=== PATIENT | female | born 2000 | race Caucasian/White ===

== ENCOUNTER → 2023-11-21 14:04 | Outpatient (REF) | payer BC, SELFPAY | LOC: HWRAD 14:04 | PROVIDERS: ATTENDING PHYSICIAN Family Medicine | DX: M54.2 Cervicalgia (principal); G89.29 Other chronic pain; M54.50 Low back pain, unspecified | CPT/HCPCS: 72050; 72072; 72110 ==

== ENCOUNTER → 2024-01-26 14:50 | Outpatient (REF) | payer BC, SELFPAY | LOC: WDC 14:50 | PROVIDERS: ATTENDING PHYSICIAN Student in an Organized Health Care Education/Training Program; FAMILY PHYSICIAN Family Medicine | DX: Z01.818 Encounter for other preprocedural examination (principal) | CPT/HCPCS: 76641 ==

== ENCOUNTER → 2024-02-08 17:19 | Outpatient (REF) | payer BC, SELFPAY | LOC: CLAB 17:19 | PROVIDERS: ATTENDING PHYSICIAN Student in an Organized Health Care Education/Training Program | DX: M25.511 Pain in right shoulder (principal); N62 Hypertrophy of breast; M25.529 Pain in unspecified elbow; M54.6 Pain in thoracic spine | CPT/HCPCS: 88305 ==

== ENCOUNTER 2024-04-08 20:35 | Emergency (ER) | payer BC, SELFPAY ==
[2024-04-08 20:36] VITALS: BP 158/100
[2024-04-08 21:02] VITALS: BMI 28.4
--- NOTE | 2024-04-08 21:10 | ED.GENMED ---
History of Present Illness
General
Chief Complaint: Abdominal Symptoms
Source: patient
Exam Limitations: none
Time Seen by Provider: 04/08/24 20:58
History of Present Illness
History of Present Illness:
This is a 23 year old female that comes in with c/o vomiting. States that she started with vomiting on Tuesday. States that she was here a year ago for the same thing. States that yesterday she didn't vomit only once in the morning. States that
she feels slightly SOB but feels this is her anxiety. States that she has also had diarrhea and chills. Denies any fever, chest pain, headache, dizziness, urinary burning.
Past History
Past History
ED Past Medical History: Asthma, Psychiatric (Anxiety, Depression, ) and Other (Colitis)
ED Past Surgical History: Tonsilectomy and Other (Bilateral breast reduction)
Social History
Tobacco: Non-smoker
Alcohol: Occasional
Personal: Single
Living: with family
Review of Systems
Review of Systems
All Other Systems: ROS reviewed and negative except as documented in HPI and ROS
Constitutional: Reports chills; Denies fever
EENT: Reports no symptoms
Respiratory: Reports trouble breathing (Slight); Denies cough
Cardiac: Reports no symptoms; Denies chest pain
ABD/GI: Reports abdominal pain, nausea, vomiting and diarrhea
: Reports no symptoms; Denies dysuria, frequency or urgency
Musculoskeletal: Reports no symptoms
Skin: Reports no symptoms
Neurological: Reports no symptoms; Denies dizzy or headache
Psychiatric: Reports no symptoms
Phy Exam
General Physical Exam
General Presentation: no apparent distress
General age: appears stated age
General Skin: warm and dry
General Habitus: normal
General Mental: alert
General Hydration: appears well hydrated
ENT Exam
ENT Exam: TM's normal, pharynx normal and neck supple
Eye Exam
Eye Exam: EOMI
Cardiovascular Exam
Cardiovascular Exam: regular rate/rhythm, no edema, no murmur and normal peripheral pulses
Pulmonary Exam
Pulmonary Exam: lungs clear, no respiratory distress, no rales, chest non tender, no crackles, no rhonchi, no wheezing and no cough
Gastrointestinal Exam
Gastrointestinal Exam: normal bowel sounds, non tender, soft, no organomegaly, no pulsatile mass and non distended
Musculoskeletal Exam
Musculoskeletal Exam: full ROM and no edema
Skin Exam
Skin Exam: normal color, warm/dry, no rash and no petechia
Psychiatric Exam
Psychiatric Exam: normal mood/affect
Course
Orders/Labs/Results
Orders:
Orders
04/08/24 21:09
0.9% Sodium Chloride 1000 ml [Nss] 1,000 ml IV BOLUS
Diphenhydramine [Benadryl] 25 mg IV NOW STA
Prochlorperazine [Compazine] 5 mg IV NOW STA
04/08/24 21:10
Pantoprazole [Protonix IV] 40 mg IV NOW STA
04/08/24 21:15
Basic Metabolic Panel Urgent
Complete Blood Count/No Diff Urgent
HCG,SERUM [Beta HCG Quantitative] Urgent
Is this a screen?: No
04/08/24 22:15
Citalopram [Celexa] 40 mg PO NOW STA
04/08/24 22:57
0.9% Sodium Chloride 1000 ml [Nss] 1,000 ml IV BOLUS
Abnormal Lab Results
04/08/24
21:15
WBC 11.2 H 10^3/uL
(4.8-10.8)
MCV 77.2 L fL
(81.0-99.0)
MCH 26.9 L pg
(27.0-31.0)
Plt Count 444 H 10^3/uL
(130-400)
Carbon Dioxide 16 L mmol/L
(22-30)
Glucose 107 H mg/dl
(70-99)
Calcium 10.9 H mg/dl
(8.4-10.2)
04/08/24 21:15
04/08/24 21:15
Leukocytosis slightly, Anemia, carbon dioxide low, Glucose nonfasting. calcium slightly elevated. HCG <2.39 Anion gap 24
Vital Signs
Initial and Last Documented VS:
Initial Vital Signs
Temp Pulse Resp BP Pulse Ox
98.1 F 104 22 158/100 100
04/08/24 20:36 04/08/24 20:36 04/08/24 20:36 04/08/24 20:36 04/08/24 20:36
Last Documented Vital Signs
Temp Pulse Resp BP Pulse Ox
98.1 F 104 18 112/73 100
04/08/24 20:36 04/08/24 20:36 04/08/24 22:00 04/08/24 23:00 04/08/24 23:45
MDM/Problems Addressed
Differential Diagnosis Includes:
cyclical vomiting, anxiety
MDM/Problems Addressed:
This is a 23 year old female that comes in with c/o vomiting since Tuesday. States that she also has diarrhea and she had this one year ago.
Will check labs, Give IV fluids and medicate for vomiting.
back into see patient. States that she is feeling better. Will give a second liter of fluid. Patient has been able to take oral fluids and keep her Oral medication down. Will discharge after second liter and give a prescription for Zofran.
Chronic conditions affecting care:
Vomiting in past
Acute Exacerbation and/or Progression of Chronic Illness:
Vomiting in past
*Pulse Oximetry
Patient hypoxic: no
*EKG
Interpreted by ED Provider?: NA
Rate: EKG- N/A
*Pediatric Associate Interpretation
Rate: Pediatric Associate- N/A
*Critical Care Note
Total Time (30-74mins, 75-104mins- exclusive of procedures): Not Applicable
ED Attending Note
-
Portions of this chart may have been created with voice recognition software.� Occasional wrong word or��sound alike� substitutions may have occurred due to the inherent limitations of voice recognition software.
Discharge Plan
Departure
Patient Disposition: Home (Routine Discharge)
Date of Disposition: 04/09/24
Time of Disposition: 00:03
Patient with high blood pressure during this ER visit?: No
Condition: Good
Covid-19: Not Applicable
Discharge Problem:
Nausea & vomiting, Diarrhea
Instructions: Diarrhea in teens and adults, Nausea and Vomiting, Adult (DC)
Prescriptions:
New
ondansetron 4 mg tablet,disintegrating
4 mg PO Q8H PRN (Reason: nausea and vomiting) Qty: 14 0RF
No Action
citalopram 40 mg Tablet
40 mg PO HS
cetirizine 10 mg Tablet
10 mg PO HS
norgestimate-ethinyl estradiol 0.18/0.215/0.25 mg-35 mcg (28) tablet
1 tab PO HS
fluticasone propionate 110 mcg/actuation Hfa Aerosol Inhaler
2 puff INHALATION R BID
omeprazole 20 mg Tablet,Delayed Release (Dr/Ec)
20 mg PO HS
albuterol sulfate 90 mcg/actuation Aerosol Powdr Breath Activated
2 inh INHALATION R Q6HPRN PRN (Reason: sob)
metronidazole 500 mg Tablet
500 mg PO Q8 Qty: 4 0RF
cefdinir 300 mg capsule
300 mg PO BID Qty: 2 0RF
Rx Instructions:
FIRST DOSE MORNING OF 05/04
ondansetron 4 mg Tablet,Disintegrating
4 mg PO Q6HPRN PRN (Reason: nausea) Qty: 8 0RF
Referrals:
Marshall Pineda MD [Family Provider] - Follow up in 2-3 days
Activity Restrictions/Additional Instructions:
As discussed, your blood work shows that your anemia. Please increase your water intake to 8-8oz glasses daily. You have also had a prescription for Zofran sent to your pharmacy. You my also use Benadryl 25mg at home when the vomiting starts as this
will help relax you and decrease the vomiting. Please stay away form milk and milk products as long as you have diarrhea as this is hard for the gut to digest and will keep the diarrhea going. Please follow up with the family doctor in the next
2-3 days for recheck. IF YOU HAVE ANY OTHER CONCERNS PLEASE RETURN TO THE EMERGENCY ROOM.
Interventions
Interventions:
*Risk Screen - Suicide Last Done: 04/08/24 20:36
*General Assessment Last Done: 04/08/24 21:04
*Neglect/Abuse Screening Last Done: 04/08/24 20:36
ED- Fall Risk Assessment Last Done: 04/08/24 21:48
*ED COVID-19 Vaccine History Last Done: 04/08/24 20:58
XD-Yqrkae-Ubbewqhjxv Assessment Last Done: 04/08/24 21:48
Discharge Date and Time
Print Language: NAMIBIAN
[2024-04-08] MEDS: PROTONIX IV 40 MG IV (21:19)
[2024-04-08] MEDS: COMPAZINE 5 MG IV (21:19)
[2024-04-08] MEDS: BENADRYL 25 MG IV (21:20)
[2024-04-08] MEDS: NSS 1000 IV ×2 (21:20→23:12)
[2024-04-08 21:21] LABS: Hematocrit 38.7 % (37.0-47.0); Hemoglobin 13.5 g/dL (12.0-16.0); Mean Corp Hgb Conc. 34.9 g/dL (33.0-37.0); Mean Corpuscular Hgb 26.9 pg (27.0-31.0); Mean Corpuscular Volume 77.2 fL (81.0-99.0); Mean Platelet Volume 9.6 fL (7.4-10.4); Platelet Count 444 10^3/uL (130-400); Red Blood Cell Count 5.01 10^6/uL (4.20-5.40); Red Cell Dist. Width 14.2 % (11.5-14.5); White Blood Cell Count 11.2 10^3/uL (4.8-10.8)
[2024-04-08 21:32] VITALS: BP 137/84
[2024-04-08 21:44] LABS: Blood Urea Nitrogen 11 mg/dl (7-17); Calcium 10.9 mg/dl (8.4-10.2); Carbon Dioxide 16 mmol/L (22-30); Chloride 99 mmol/L (98-107); Estimated Creatinine Clearance > 125 ml/min; Glucose 107 mg/dl (70-99); Potassium 4.1 mmol/L (3.5-5.1); Sodium 139 mmol/L (135-145); eGFR > 60.00
[2024-04-08 21:52] LABS: Beta HCG Quantitative < 2.39 mIU/ml
[2024-04-08 22:00] VITALS: BP 115/62
[2024-04-08] MEDS: CELEXA 40 MG PO (22:35)
[2024-04-08 23:00] VITALS: BP 112/73
== END 2024-04-09 00:36 | disposition home or self-care (01) ==
LOC: EMR 20:35
PROVIDERS: EMERGENCY PHYSICIAN Student in an Organized Health Care Education/Training Program; FAMILY PHYSICIAN Family Medicine
DX: R11.2 Nausea with vomiting, unspecified (principal); R19.7 Diarrhea, unspecified; J45.909 Unspecified asthma, uncomplicated; F41.8 Other specified anxiety disorders
CPT/HCPCS: 99283; 96374; 96375; 80048; 84702; 85027